=== PATIENT | female | born 1960 | race Caucasian/White ===

== ENCOUNTER → 2016-12-28 | Outpatient (CLI) | payer MEDICAID ==
[~2016-12-28] MED LIST: ASPI-496 PO; ATEN50TA41 PO; FLUT16SP2 NAS; MULT-26 PO
== END | disposition home or self-care (01) ==
LOC: CFH 09:12
PROVIDERS: ATTEND Nurse Practitioner Family
DX: Z12.31 Encounter for screening mammogram for malignant neoplasm of breast (principal)
CPT/HCPCS: G0202

== ENCOUNTER 2021-01-04 08:12 | Outpatient (CLI) | payer MEDICAID | END 2021-01-04 23:59 | disposition home or self-care (01) | LOC: CFH 08:12 | PROVIDERS: ATTEND Obstetrics & Gynecology Female Pelvic Medicine and Reconstructive Surgery | DX: E04.2 Nontoxic multinodular goiter (principal) | CPT/HCPCS: 76536 ==